=== PATIENT | female | born 1970 | race Caucasian/White ===

== ENCOUNTER 2018-10-23 18:01 | Observation (INO) | payer OTHER, SELFPAY ==
[~2018-10-23 18:01] MED LIST: Dexamethasone 20 MG/5 ML VIAL ONE; Ketorolac Tromethamine 30 MG/ML VIAL ONE; Lidocaine 1% PF 5 ML VIAL ONE; Metoclopramide HCl 10 MG/2 ML VIAL ONE; Ondansetron PF 4 MG/2 ML Vial ONE; PROPOFOL 200 MG/20 ML VIAL ONE; Rocuronium Bromide 10 MG/ML (10ML VIAL) ONE; Succinylcholine Chloride 20 MG/ML 10 ml SYRINGE FS ONE
[2018-10-23] MEDS ORDERED: Famotidine/PF 20 mg/2ml Vial ONE (18:20)
[2018-10-23] MEDS ORDERED: Fentanyl 100 MCG/2 ML VIAL ONE ×2 (18:20)
[2018-10-23] MEDS ORDERED: Bupivacaine/Epinephrine 0.25% 30 ML VIAL ONE (18:28)
[2018-10-23] MEDS ORDERED: SUGAMMADEX SODIUM 200 MG/2 ML VIAL ONE (18:40)
[2018-10-23] MEDS ORDERED: Meperidine HCl/PF 25 MG/ML VIAL ONE (18:40)
[2018-10-23] MEDS ORDERED: Promethazine HCl 25 MG/ML VIAL SLOW IVP PRN (19:09)
[2018-10-23] MEDS ORDERED: Ondansetron HCl/PF 4 MG/2 ML Vial IVP PRN (19:09)
[2018-10-23] MEDS ORDERED: Promethazine HCl 25 MG/ML VIAL IM PRN ×2 (19:09→20:44)
--- NOTE | 2018-10-23 20:28 | OP ---
DATE OF PROCEDURE: 10/23/2018 PREOPERATIVE DIAGNOSIS: Acute appendicitis. POSTOPERATIVE DIAGNOSIS: Acute appendicitis. PROCEDURE PERFORMED: Laparoscopic appendectomy. ANESTHESIA: General. ESTIMATED BLOOD LOSS: Minimal. COMPLICATIONS: None. SPECIMEN: Appendix. FINDINGS: Appendicitis. DESCRIPTION OF PROCEDURE: The patient was taken to the operating room and laid supine on the operating room table. After general anesthetic was obtained, the abdomen was shaved, prepped, and draped in a sterile fashion. A Hess catheter had been placed. A curved incision was made below the umbilicus. Cautery was used to dissect down to and score the fascia. Abdominal cavity entered using a Anne Marie clamp. Holding stitch of PDS was placed on each side of the fascia. Arabella trocars were placed. High-flow pneumoperitoneum was obtained. A suprapubic 5 mm port and left lower quadrant 5 mm ports were placed under direct visualization. The cecum was rolled over to reveal acute appendicitis. The appendix was stuck to the right ovary. A window was made at the base of the appendix and mesoappendix. Laparoscopic stapler was fired across the base of the appendix. A vascular reload was fired across the mesoappendix. The appendix was placed in the EndoCatch bag and brought out through the Arabella. The right ovary had an abnormal appearance on its surface likely from adhesion to the appendix. Having said that, the biopsy of the outer surface of the ovary was performed and sent to Pathology for final diagnosis. There were no obvious malignancy. There was no bleeding on the staple lines. The abdomen was all irrigated using sterile solution and there was no injury to any intraabdominal structures. All port sites were infiltrated using local anesthetic. All ports were removed under camera visualization. Pneumoperitoneum was let down. PDS was used to close the fascial defect below the umbilicus. All incisions were irrigated and closed using 4-0 Monocryl and Dermabond. The patient was sent to Recovery in stable condition. All instrument counts, needle counts, and lap counts were correct. Job ID: [id number]
[2018-10-23] MEDS ORDERED: Zolpidem Tartrate 5 MG TAB PO PRN (20:44)
[2018-10-23] MEDS ORDERED: HYDROcodone/Acetaminophen 7.5/325 mg Tablet PO PRN ×2 (20:44)
[2018-10-23] MEDS ORDERED: Morphine 4 MG/ML VIAL SLOW IVP PRN (20:44)
[2018-10-23] MEDS ORDERED: Morphine 2 MG/ML SYRINGE SLOW IVP PRN (20:44)
[2018-10-23] MEDS ORDERED: Ondansetron PF 4 MG/2 ML Vial IVP PRN (20:44)
[2018-10-23] MEDS ORDERED: traMADol HCl 50 MG TAB PO PRN (20:44)
[2018-10-23] MEDS ORDERED: Dextrose 50% Abboject 50 ML SYRINGE SLOW IVP PRN (20:44)
[2018-10-23] MEDS ORDERED: Sodium Chloride 0.9% 1,000 ML IV SCH (20:44)
[2018-10-23] MEDS ORDERED: Dextrose 5% in Water 1,000 ML IV PRN (20:44)
[2018-10-23] MEDS ORDERED: hydrALAZINE 20 MG/ML VIAL SLOW IVP PRN (20:44)
[2018-10-23] MEDS ORDERED: Famotidine/PF 20 mg/2ml Vial SLOW IVP SCH (21:00)
[2018-10-23] MEDS ORDERED: Famotidine 20 MG TAB PO SCH (21:00)
--- NOTE | 2018-10-23 22:11 | HP ---
CHIEF COMPLAINT: Abdominal pain. HISTORY OF PRESENT ILLNESS: This is a 47-year-old female who is in from out of town for baseball tournament, who had acute onset of severe lower abdominal pain upon waking up this morning, crampy lower abdomen, became more localized to the right lower quadrant, seen in [facility] ER, where CT scan has revealed appendicitis. The pain is described as 8/10 sharp, comes in waves. Nothing makes it better, except lying still, associated with nausea. No vomiting. No fever or chills. No history of chronic abdominal pain or inflammatory bowel disease. PAST MEDICAL HISTORY: Lyme disease and hypothyroidism. PAST SURGICAL HISTORY: Cholecystectomy. MEDICATIONS: Thyroid. ALLERGIES: SULFA. SOCIAL HISTORY: Occasional alcohol. No smoking or other drugs. REVIEW OF SYSTEMS: 10-system review of systems is otherwise negative except as described above. PHYSICAL EXAMINATION: HEENT: Sclerae anicteric. Oropharynx clear. NECK: No lymphadenopathy. CHEST: Clear. HEART: Regular rate and rhythm. ABDOMEN: Soft, tender in the right lower quadrant with localized guarding. No rebound. EXTREMITIES: No ischemia or edema to extremities. DIAGNOSTIC STUDIES: CT scan shows fluid-filled dilated appendix and appendicolith. ASSESSMENT: Appendicitis. PLAN: Laparoscopic appendectomy. Risks, benefits, and alternatives were discussed. She gives consent, we will do this today. Job ID: [id number]
[2018-10-24] MEDS: Piperacillin/Tazobactam 3.375 GM in Sodium Chloride 0.9% 100 ML IVPB SCH ×2 (00:17→06:06)
[2018-10-24 07:13] VITALS: BP 105/61; TEMP 98.3
[2018-10-24 07:15] VITALS: BMI 20.9
== END 2018-10-24 07:05 | disposition home or self-care (01) ==
LOC: SDC 18:01 → 3SE 20:13
PROVIDERS: ADMIT Surgery; ATTEND Surgery
PROC: 0DTJ4ZZ Resection of Appendix, Percutaneous Endoscopic Approach (ICD-10-PCS; principal; 2018-10-24)
DX: K35.80 Unspecified acute appendicitis (principal); A69.20 Lyme disease, unspecified; E03.9 Hypothyroidism, unspecified; Z79.899 Other long term (current) drug therapy; Z88.2 Allergy status to sulfonamides
CPT/HCPCS: 88304; 88305; 96365; 96366; G0378; J0131; J1100; J1885; J2001; J2175; J2405; J2543; J2704; J2765; J3010; J3490; S0028